=== PATIENT | male | born 1975 | race Caucasian/White ===

== ENCOUNTER → 2019-09-24 17:16 | Outpatient (CLI) | payer BC, SELFPAY ==
[2019-09-24 18:08] LABS: Basophils # 0.1 K/mm3 (0-0.2); Basophils % 0.5 % (0.1-2.0); Eosinophils # 0.3 K/mm3 (0.0-0.4); Eosinophils % 2.6 % (0.1-12.0); Hematocrit 50.4 % (42.0-52.0); Hemoglobin 16.1 g/dL (14.1-18.0); Lymphocytes # 3.6 K/mm3 (0.7-4.5); Lymphocytes % 35.6 % (10-50); Mean Corpuscular Hemoglobin 32.6 pg (27.0-31.2); Mean Corpuscular Volume 101.8 fl (80-94); Mean Platelet Volume 8.9 fl (7.4-10.4); Monocytes # 0.8 K/mm3 (0.1-1.0); Monocytes % 7.5 % (1.7-9.3); Neutrophils # 5.4 K/mm3 (1.8-7.8); Neutrophils % 53.8 % (37.0-80.0); Platelet Count 342 K/mm3 (142-424); Red Blood Count 4.95 M/mm3 (4.60-6.20); Red Cell Distribution Width 12.2 % (11.5-17.5); White Blood Count 10.1 K/mm3 (4.8-10.8)
[2019-09-24 19:18] LABS: Alanine Aminotransferase 39 U/L (12-78); Albumin/Globulin Ratio 1.4 (1.1-1.8); Alkaline Phosphatase 75 U/L (46-116); Anion Gap 16.4 mEq/L (5-15); Aspartate Amino Transferase 21 U/L (15-37); Bilirubin,Total 0.3 mg/dL (0.2-1.0); Blood Urea Nitrogen 11 mg/dL (7-18); Calcium 8.7 mg/dL (8.5-10.1); Carbon Dioxide 24 mmol/L (21.0-32.0); Chloride 104 mmol/L (98-107); Cholesterol 237 mg/dL (140-200); Creatinine,Serum 1.04 mg/dL (0.70-1.30); Estimated Glomerular Filt Rate 77 ml/min (>60); Free T4 (Free Thyroxine) 1.05 ng/dl (0.76-1.46); GFR (African American) 93 ML/MIN (>60); Globulin 2.9 gm/dl (1.3-3.2); Glucose 94 mg/dL (74-106); HDL Cholesterol 60 mg/dL (27-67); LDL Cholesterol 147 mg/dL (0-130); Potassium 4.4 mmoL/L (3.5-5.1); Sodium 140 mmol/L (136-145); Thyroid Stimulating Hormone 1.62 uIU/ml (0.358-3.740); Total Protein,Serum 6.9 gm/dL (6.4-8.2); Triglycerides 148 mg/dL (30-200); VLDL Cholesterol 30 mg/dL (0-40)
[2019-09-26 10:19] LABS: Vitamin D 25 Hydroxy 19.8 ng/mL (30.0-100.0)
== END ==
LOC: LAB 17:17 → LAB.DROPOF 09-25 07:50
PROVIDERS: Visit Provider Nurse Practitioner Family
DX: R53.83 Other fatigue (principal); E03.9 Hypothyroidism, unspecified; K59.00 Constipation, unspecified; E55.9 Vitamin D deficiency, unspecified
CPT/HCPCS: 80053; 80061; 82652; 84439; 84443; 85025

== ENCOUNTER → 2019-10-08 08:43 | Outpatient (CLI) | payer BC, SELFPAY ==
--- NOTE | 2019-10-08 08:44 | CA_ITS ---
APPROVED REPORT Exam: Exercise Treadmill Technologist: jose bonilla, Ht: 5 ft 8 in Wt: 180 lbs BSA: 1.95 m2 HR: 52 bpm Rhythm: SINUS BRADYCARDIA Indications: CP Medical History Medications: Vitamin D3,,,,, Naproxen,,,,, Allergies: KETOROLAC Cardiac Risk Factors: Smoking Stress Test Details Test: Adam HR Resting HR: 76 bpm Max Heart Rate (APMHR): 174 bpm Max HR Achieved: 161 bpm Target HR (85% APMHR): 147 bpm % of APMHR: 92 Recovery HR: 126 bpm BP Resting BP: 125.0/75.0 mmHg Max BP: 168.0/86.0 mmHg Recovery BP: 152.0/80.0 mmHg ECG Resting ECG: SINUS BRADYCARDIA Clinical Exercise duration: 13:12 min Highest Stage Achieved: Exercise capacity: 14.8 METs Stress ECG Conclusion PATIENT EXERCISED 13:12 ON ADAM PROTOCOL. MAX HEART RATE 155 BPM WHICH IS 89% OF PM FOR AGE. MAX BP 168/86. METS = 14.8. TEST STOPPED DUE TO SOA AND LEG FATIGUE. NO CHEST PAIN. RARE PVC. ALLOWING FOR SOME MOTION ARTIFACT,THE ST RESPONSE TO EXERCISE IS NORMAL. NORMAL GXT. EXCELLENT EXERCISE TOLERANCE. GXT ONLY(NO IMAGING). Test Summary REST . . . . . . . Standing REST . . . . . . . Sitting REST 19:12 0.0 0.0 76 . 125/ 75 . . Stage 1 01:00 10.0 1.7 90 . . . . Stage 1 02:00 10.0 1.7 91 . . . . Stage 1 03:00 10.0 1.7 91 . 120/ 70 . . Stage 2 01:00 12.0 2.5 102 . . . . Stage 2 02:00 12.0 2.5 106 . . . . Stage 2 03:00 12.0 2.5 104 . 138/ 70 . . Stage 3 01:00 14.0 3.4 111 . . . . Stage 3 02:00 14.0 3.4 115 . . . . Stage 3 03:00 14.0 3.4 112 . 144/ 70 . . Stage 4 01:00 16.0 4.2 122 . . . . Stage 4 02:00 16.0 4.2 129 . . . . Stage 4 03:00 16.0 4.2 132 . . . . Stage 5 01:00 18.0 5.0 160 . . . . Stage 5 01:12 18.0 5.0 155 . . . Stop exercise at 13:12 RECOVERY 01:00 0.0 0.0 125 . . . . RECOVERY 02:00 0.0 0.0 106 . 152/ 80 . . RECOVERY 03:00 0.0 0.0 94 . 168/ 86 . . RECOVERY 04:00 0.0 0.0 92 . 147/ 86 . . RECOVERY 05:00 0.0 0.0 84 . 147/ 86 . . RECOVERY 05:40 0.0 0.0 85 . 133/ 82 . . Electronically signed by : Leonardo Reynoso, 10/13/2019 15:32:20
== END ==
PROVIDERS: PCP Emergency Medicine; Visit Provider Nurse Practitioner Family
DX: R07.9 Chest pain, unspecified (principal); R53.83 Other fatigue; F17.200 Nicotine dependence, unspecified, uncomplicated
CPT/HCPCS: 93017

== ENCOUNTER → 2020-08-30 12:36 | Outpatient (CLI) | payer OTHER, SELFPAY ==
--- NOTE | 2020-08-30 12:41 | XR_ITS ---
PROCEDURE: XR KNEE RT 4V CLINICAL INDICATION: RT knee pain; weightbearing COMPARISON: No exams were available for comparison FINDINGS: No fracture or dislocation. No lytic or blastic change. There is normal mineralization. The joint spaces are well-preserved. No significant degenerative/arthritic changes. No erosive changes evident. Other findings:There is a small sclerotic focus in the medial aspect of the left proximal tibia and may be due to small bone island. IMPRESSION: No acute findings. Dictated by: Marbin Casanova MD 08/30/2020 15:35 Marbin Casanova MD in [place] 08/30/2020 15:35
== END ==
PROVIDERS: PCP Emergency Medicine; Visit Provider Orthopaedic Surgery
DX: M25.561 Pain in right knee (principal)
CPT/HCPCS: 73564

== ENCOUNTER → 2020-09-02 10:17 | Outpatient (CLI) | payer OTHER, SELFPAY ==
--- NOTE | 2020-09-02 10:21 | XR_ITS ---
PROCEDURE: XR ORBIT BILATERAL MIN 4V CLINICAL INDICATION: history of metal in eye; before MRI COMPARISON: No exams were available for comparison TECHNIQUE: AP views are obtained of the orbits with the patient looking up and down. FINDINGS: No radio opaque foreign bodies evident. IMPRESSION: No radio opaque orbital foreign body identified. Dictated by: Marbin Casanova MD 09/02/2020 10:53 Marbin Casanova MD in [place] 09/02/2020 10:53
== END ==
PROVIDERS: PCP Emergency Medicine; Visit Provider Orthopaedic Surgery
DX: H05.53 Retained (old) foreign body following penetrating wound of bilateral orbits (principal)
CPT/HCPCS: 70200

== ENCOUNTER → 2020-09-05 09:54 | Outpatient (CLI) | payer OTHER, SELFPAY ==
--- NOTE | 2020-09-05 09:55 | MR_ITS ---
PROCEDURE: MR KNEE RT WO CON CLINICAL INDICATION: right knee pain; evaluate for mensical tear RIGHT MEDIAL KNEE PAIN, SWELLING X3 MONTHS. NO INJURY OR TRAUMA. PRIOR XRays 08-30- COMPARISON: CR XR KNEE RT 4V from 08/30/2020 TECHNIQUE: Routine multiplanar multi echo sequences are performed without gadolinium enhancement. FINDINGS: The cruciate ligaments appear intact. The collateral ligaments, quadriceps tendon, and patellar tendon appear intact. The lateral meniscus has an unremarkable appearance. There is a complex tear involving the posterior horn of the medial meniscus with both longitudinal and horizontal component. In addition, there is a displaced meniscal fragment with linear low signal intensity along the lateral aspect of the medial joint space consistent a double PCL sign consistent with a bucket-handle tear. There is a moderate size knee joint effusion the small Mccann's cyst. Soft tissue edema is also present in the popliteal region. There is a small 7 mm cystic area within the mid aspect of the distal femur and may represent a cortical defect. IMPRESSION: 1. There is complex tear of the posterior horn of the medial meniscus with both longitudinal and horizontal component along with a bucket-handle tear of the medial meniscus as described above. 2. Medium-sized knee joint effusion with soft tissue edema in the popliteal fossa Dictated by: Marbin Casanova MD 09/06/2020 09:45 Marbin Casanova MD in [place] 09/06/2020 09:45
== END ==
PROVIDERS: PCP Emergency Medicine; Visit Provider Orthopaedic Surgery
DX: M25.561 Pain in right knee (principal)
CPT/HCPCS: 73721

== ENCOUNTER → 2020-09-06 11:54 | Outpatient (CLI) | payer OTHER, SELFPAY ==
--- NOTE | 2020-09-06 11:58 | XR_ITS ---
PROCEDURE: XR CHEST 2V CLINICAL HISTORY: HX OF SOB, PREOPERATIVE COMPARISON: No exams were available for comparison FINDINGS: The cardiomediastinal silhouette and pulmonary vascularity are within normal limits. The lungs are clear without infiltrates, suspicious nodules, or pleural effusions. No acute bony abnormalities. IMPRESSION: No acute findings. Dictated by: Marbin Casanova MD 09/06/2020 14:39 Marbin Casanova MD in [place] 09/06/2020 14:39
== END ==
PROVIDERS: PCP Emergency Medicine; Visit Provider Orthopaedic Surgery
DX: Z01.818 Encounter for other preprocedural examination (principal); S83.231A Complex tear of medial meniscus, current injury, right knee, initial encounter; S83.211A Bucket-handle tear of medial meniscus, current injury, right knee, initial encounter
CPT/HCPCS: 71046

== ENCOUNTER → 2020-09-10 08:18 | Outpatient (CLI) | payer OTHER, SELFPAY ==
[2020-09-10 08:36] LABS: Basophils # 0.1 K/mm3 (0-0.2); Basophils % 0.6 % (0.1-2.0); Eosinophils # 0.3 K/mm3 (0.0-0.4); Eosinophils % 3.6 % (0.1-12.0); Hematocrit 48.9 % (42.0-52.0); Lymphocytes # 2.7 K/mm3 (0.7-4.5); Lymphocytes % 33.2 % (10-50); Mean Corpuscular HGB Conc 32.8 g/dL (31.8-35.4); Mean Corpuscular Hemoglobin 32.5 pg (27.0-31.2); Mean Corpuscular Volume 99.1 fl (80-94); Mean Platelet Volume 7.2 fl (7.4-10.4); Monocytes # 0.5 K/mm3 (0.1-1.0); Monocytes % 6.2 % (1.7-9.3); Neutrophils # 4.6 K/mm3 (1.8-7.8); Neutrophils % 56.4 % (37.0-80.0); Platelet Count 318 K/mm3 (142-424); Red Blood Count 4.93 M/mm3 (4.60-6.20); White Blood Count 8.2 K/mm3 (4.8-10.8)
[2020-09-10 10:12] LABS: Coronavirus 19 IgG Antibody Negative (Negative); Coronavirus 19 IgM Antibody Negative (Negative)
[2020-09-10 11:24] LABS: Chloride 107 mmol/L (98-107); Sodium 138 mmol/L (136-145)
[2020-09-10 11:25] LABS: Potassium 4.5 mmoL/L (3.5-5.1)
[2020-09-10 11:27] LABS: Alanine Aminotransferase 23 U/L (12-78); Albumin Level 4.1 g/dl (3.5-5.0); Albumin/Globulin Ratio 1.6 (1.1-1.8); Alkaline Phosphatase 84 U/L (38-126); Anion Gap 10.5 mEq/L (5-15); Aspartate Amino Transferase 29 U/L (17-59); Bilirubin,Total 0.4 mg/dl (0.2-1.3); Blood Urea Nitrogen 13 mg/dl (9-20); Calcium 9.3 mg/dl (8.4-10.2); Carbon Dioxide 25 mmol/L (22.0-30.0); Estimated Glomerular Filt Rate 80 ml/min (>60); GFR (African American) 97 ML/MIN (>60); Globulin 2.6 g/dL (1.3-3.2); Glucose 97 mg/dl (74-100); Total Protein,Serum 6.7 g/dl (6.3-8.2)
== END ==
PROVIDERS: Visit Provider Orthopaedic Surgery
DX: Z01.818 Encounter for other preprocedural examination (principal); S83.231D Complex tear of medial meniscus, current injury, right knee, subsequent encounter
CPT/HCPCS: 36415; 80053; 85025; 86328

== ENCOUNTER 2020-09-12 08:26 | Day surgery (SDC) | payer OTHER, SELFPAY ==
[2020-09-06 14:17] VITALS: BMI 25.5
[2020-09-12] VITALS (12 sets, daily range): BP systolic 105–128; BP diastolic 66–78; PULSE 67–77; RESP 16–18; TEMP 36.2–43; O2SAT 96–98
--- NOTE | 2020-09-12 08:51 | HMH.ANESCL ---
[facility] Anesthesia Checklist - Patient Identification Patient Identification: Arm Band, Verbal (Name & ) - Structural Data Admitted From: Home Planned Operative Procedure/s: right knee scope Consent for Planned Operative Procedure(s) Verified: Yes Verified Documents: History and Physical - NPO Status Verified Time NPO: 00:00 - Additional verifications Patient : No Anesthesia Reactions: No Hx Blood Transfusions: No Blood Transfusion Reaction: No Cephalosporin Allergy: No Previous Colonoscopy: No - Cardiovascular Assessment Heart Sounds: S1 & S2 Pulse Strength: Baseline Pulse Rhythm: Regular Peripheral Edema: No - Airway Assessment C-Spine Mobility Assessed: Yes TMJ Mobility Assessed: Yes Dentition: Good Dentition - Neurological Assessment Level of Consciousness: Awake, Alert, Appropriate Hx Seizures: No Numbness or tingling in extremities: No - Anesthesia Plan Anesthesia Risk discussed: Yes Anesthesia Plan: Verified ASA Class: II Anesthesia Type: General [facility] History I have reviewed the patient's past medical history: Yes Medical History: Denies:: Cancer, Diabetes Mellitus Type 1, Diabetes Mellitus Type 2, MRSA, Seizures *Have you ever received a pneumonia vaccine?: No *Have you received a flu vaccine this season?: Yes Other Medical History: Denies: Blood Transfusion Reaction Anesthesia experience/problems:: none Laterality Cases: Bilateral: Tonsillectomy Amputation: No Fractures: Yes - *Social History Last grade of school completed: Some college Smoking Status: Current every day smoker Tobacco Type: cigarettes # Packs/Day (cigarettes): 1 Alcohol Intake: never Alcohol Intake Frequency:: holidays/special occasions only Substance Use Type: denies use *Occupational Status:: employed Housing: house Household Members: family *Travel in the last 8 weeks: None Family Hx:: No significant family history
--- NOTE | 2020-09-12 12:12 | HMH.ANESI ---
[facility] Anesthesia Record Part I Intake, IV Amount: 700 Estimated blood loss (mL): 5 Urine output (mL): 0 Blood Pressure: 128/76 SaO2: 96 Pulse Rate: 67 Respiratory Rate: 16 Temperature: 99 F Patient is:: Drowsy, Stable Stable to PACU at:: 12:10
--- NOTE | 2020-09-12 13:06 | P.PN_ITS ---
[facility] Anesthesia Record Part II Discharge Time: 12:40 Destination: Surgical Day Care (OP Surgery) PACU nurse assessment reviewed?: Yes Patient Condition:: Good Anesthesia Complications:: None Swallowing reflex intact?: Yes Cyanosis?: No Blood Pressure: 109/75 Pulse Rate: 67 Temperature: 99 F Mental Status: Alert & Oriented Pain level:: 0 Nausea and/or vomitting:: None Intake, IV Amount: 0
--- NOTE | 2020-09-12 15:26 | P.PN_ITS ---
[facility] Anesthesia Record Part II Discharge Time: 12:40 Destination: Surgical Day Care (OP Surgery) PACU nurse assessment reviewed?: Yes Patient Condition:: Good Anesthesia Complications:: None Swallowing reflex intact?: Yes Cyanosis?: No
--- NOTE | 2020-09-12 16:29 | HMH.OPNOTE ---
Date of procedure: 09/12/20 Pre-op Diagnosis:: Complex medial meniscal tear, right knee Post-op Diagnosis:: 1. Complex medial meniscal tear, right knee 2. Pathological medial plica, right knee 3. Patellofemoral arthritis, right knee Procedure performed:: 1. Examination of right knee under anesthesia 2. Arthroscopic partial medial meniscectomy, right knee 3. Arthroscopic resection of medial plica, right knee 4. Arthroscopic chondroplasty, right knee Surgeon:: Cortez Painter MD Mechanical Equipment Sales Engineer(s):: Perla Collins RN FIELD:: Sugey Zurita Anesthesia: LMA Estimated blood loss (mL): 2 Clinical Note:: The patient is a 45-year-old male with right knee pain with exacerbation of symptoms following a recent injury. MRI scan showed a complex medial meniscal tear with a displaced bucket-handle component. He unresponsive to conservative management and the knee joint is locked in 10 degrees of flexion. Clinically his symptoms are consistent with the above diagnosis. Resection of the torn medial meniscus, chondroplasty and debridement is indicated to relieve the pain and improve function of the knee. Please refer to my office notes for full details. Operative findings:: Examination of the right knee under anesthesia, showed a stable knee joint. There is 2+ knee joint effusion. Knee range of motion is from 10-140? of flexion. Operative findings showed a complex medial meniscal tear with a displaced bucket-handle component. There is localized grade 2 degenerative mold changer the lateral facet of the patellar articular surface; rest of the knee joint is well preserved without any significant degenerative changes. A fairly large thickened and hyperemic medial plica was noted and its corresponding abrasion area on the medial femoral condyle noted as well. The anterior cruciate ligament and posterior cruciate ligaments were intact. No loose bodies were noted. Moderate synovitis was noted in the knee. Operative note:: On the day of the procedure the patient was met in the preoperative area and positively identified. A physical examination was performed and documented. The operative site and side was marked and initialed by me. I again discussed the diagnosis, management options including both nonsurgical and surgical. I discussed the proposed surgical procedure, risks and benefits and alternatives in detail. The complications discussed include but are not limited to infection, injury to nerves and blood vessels, injury to the ligaments and tendons, knee stiffness, arthrofibrosis, incomplete relief, incomplete functional recovery, DVT, PE, CRPS, complications related to anesthesia including heart attack, stroke and even . I have also discussed about the likely need for further surgery in future. I told him that there were no guarantees with surgery; he could be no better or even worse. We also discussed the postoperative recovery and rehabilitation protocol. I believe the patient to be well informed with regard to the proposed surgery. I told him that it would take few months for full recovery of the knee after surgery. He expressed a full understanding and wished to proceed with the planned surgery. Patient understood the risks, agreed to proceed with surgery, and no guarantees or assurances were given or implied. Patient was brought to the operating room and placed supine on the operating table. All the bony prominences were appropriately padded. A general anesthesia was administered by the sand mixer. A well-padded tourniquet cuff was placed over the right upper thigh. Examination of the right knee under anesthesia was performed. A moderate knee effusion was noted. Knee range of motion was 10-140 degrees of flexion. Knee joint is noted to be ligamentously stable. The right knee was then prepped and draped in the usual sterile fashion. A preprocedure timeout was performed as per protocol. Administration of prophylactic IV antibiotics was confirmed with the sand mixer. The
== END 2020-09-12 13:18 | disposition home or self-care (01) ==
LOC: OR 08:27
PROVIDERS: PCP Emergency Medicine; Visit Provider Orthopaedic Surgery
PROC: (CPT 29870; principal; 2020-09-12 10:00)
DX: S83.211A Bucket-handle tear of medial meniscus, current injury, right knee, initial encounter (principal); M67.51 Plica syndrome, right knee; M17.11 Unilateral primary osteoarthritis, right knee; Z88.8 Allergy status to other drugs, medicaments and biological substances
CPT/HCPCS: 29881; 29879; 96374; J0131; J2405

== ENCOUNTER → 2021-10-25 17:27 | Outpatient (CLI) | payer BC, SELFPAY | PROVIDERS: Visit Provider Nurse Practitioner Family | DX: Z00.00 Encounter for general adult medical examination without abnormal findings (principal) | CPT/HCPCS: 87086 ==